=== PATIENT | male | born 1935 | race Caucasian/White ===

== ENCOUNTER → 2018-03-03 12:44 | Outpatient (REF) | payer MEDICARE, BC, SELFPAY ==
[2018-03-03 20:15] LABS: Abs Immature Grans 0.01 k/cumm (0.0-0.09); Absolute Basophil Count 0.02 k/cumm (0.0-0.2); Absolute Lymphocyte Count 1.06 k/cumm (1.2-3.4); Absolute Monocyte Count 0.62 k/cumm (0.11-0.7); Absolute Neutrophil Count 5.24 k/cumm (1.2-6.7); Basophils % 0.3; Eosinophils % 1.4; HCT 42.4 % (40.0-50.0); HGB 13.8 g/dL (13.5-17.5); Immature Grans % 0.1; Mean Corp. HGB Concentration 32.5 g/dL (32.0-36.0); Mean Corpuscular Hemoglobin 29.7 pg (27.0-33.0); Mean Corpuscular Volume 91.2 fL (80-95); Mean Platelet Volume 10.2 fL (8.0-11.0); Monocytes % 8.8; Neutrophils % 74.4; Platelet Count 269 x1000/uL (130-400); RBC 4.65 m/cumm (4.50-6.00); RBC Distribution Width 14.3 % (11.8-14.1); White Blood Cell Count 7.05 k/cumm (4.4-10.8)
[2018-03-03 21:24] LABS: Anion Gap 6.4 mmol/L (3-11); BUN 15 mg/dL (7-18); CO2 29.6 mmol/L (21.0-32.0); Chloride 103 mmol/L (98-107); Glucose 91 mg/dL (70-100); Potassium 4.5 mmol/L (3.5-5.1); Sodium 139 mmol/L (136-145)
[2018-03-05 11:26] LABS: IgA 237 mg/dL (85-499); IgG 1208 mg/dL (610-1616); IgM 18 mg/dL (35-242)
[2018-03-05 13:07] LABS: Albumin 57.2 % (55.8-66.1); Total Protein 6.3 g/dl (6.3-8.2)
== END ==
LOC: NCHCN 12:44
PROVIDERS: PCP Internal Medicine; Visit Provider Internal Medicine
DX: I10 Essential (primary) hypertension (principal); D47.2 Monoclonal gammopathy
CPT/HCPCS: 80048; 82784; 84165; 85025; 86320

== ENCOUNTER 2019-04-18 16:23 | Outpatient (REF) | payer MEDICARE, BC, SELFPAY ==
[2019-04-18 19:43] LABS: Anion Gap 7.3 mmol/L (3-11); BUN 23 mg/dL (7-18); CO2 30.7 mmol/L (21.0-32.0); CREATININE 0.77 mg/dL (0.70-1.30); Calcium 8.7 mg/dL (8.5-10.1); Chloride 104 mmol/L (98-107); Glucose 89 mg/dL (70-100); Potassium 4.2 mmol/L (3.5-5.1); Sodium 142 mmol/L (136-145)
== END 2019-04-18 16:43 ==
LOC: NCHCN 16:23
PROVIDERS: PCP Internal Medicine; Visit Provider Internal Medicine
DX: I10 Essential (primary) hypertension (principal)
CPT/HCPCS: 80048

== ENCOUNTER 2019-09-28 15:08 | Outpatient (REF) | payer MEDICARE, BC, SELFPAY | END 2019-09-28 15:28 | LOC: NCHCN 15:08 | PROVIDERS: PCP Internal Medicine; Visit Provider Physician Assistant | DX: L89.609 Pressure ulcer of unspecified heel, unspecified stage (principal) | CPT/HCPCS: 87077; 87070; 87186; 87205 ==

== ENCOUNTER 2020-12-19 15:50 | Outpatient (REF) | payer MEDICARE, BC, SELFPAY ==
[2020-12-19 20:48] LABS: Albumin 3.5 g/dL (3.4-5.0); Anion Gap 5.7 mmol/L (3-11); BUN 19 mg/dL (7-18); CO2 30.3 mmol/L (21.0-32.0); CREATININE 0.8 mg/dL (0.70-1.30); Calcium 9.1 mg/dL (8.5-10.1); Chloride 102 mmol/L (98-107); Glucose 107 mg/dL (74-106); PHOSPHORUS 3.8 mg/dL (2.6-4.7); Potassium 4.4 mmol/L (3.5-5.1); Sodium 138 mmol/L (136-145)
[2020-12-19 20:55] LABS: HCT 40.2 % (40.0-50.0); HGB 12.9 g/dL (13.5-17.5); MCH 29.1 pg (27.0-33.0); MCHC 32.1 % (32.0-36.0); MCV 90.7 fL (80-95); MPV 10.1 fL (8.0-11.0); Platelet Count 296 10^3/uL (130-400); RBC 4.43 10^6/uL (4.36-5.78); RDW 14.6 % (11.8-14.1); RDW-SD 48.8 fL; WBC 8.17 10^3/uL (4.4-10.8)
== END 2020-12-19 15:51 | disposition home or self-care (01) ==
LOC: NCHCN 15:50
PROVIDERS: PCP Internal Medicine; Visit Provider Internal Medicine
DX: I10 Essential (primary) hypertension (principal); G25.0 Essential tremor; G20 Parkinson's disease
CPT/HCPCS: 80069; 85027; 83735